=== PATIENT | female | born 1940 | race Caucasian/White ===

== ENCOUNTER → 2017-01-27 | Outpatient (CLI) | payer MEDICARE ==
[~2017-01-27] MED LIST: ACET325T51 PO; ALBU18HF2 INH; CETI10CA19 PO; CLOP75TA PO; FLUT9.9S NAS; GEMF600T3 PO; IPRA3AMP AEROSOL; METO50TA5 PO; PANT40TA27 PO; POTA20TA10 PO; PRAV40TA3 PO; TRAV5DRO BOTH EYES; TRIA15OI2 TOP
[2017-01-27 14:44] LABS: POTASSIUM 3.7 MEQ/L (3.6-5)
== END ==
LOC: LAB 14:22
PROVIDERS: ATTEND Family Medicine
DX: E87.6 Hypokalemia (principal)
CPT/HCPCS: 36415; 84132

== ENCOUNTER → 2017-01-28 | Outpatient (CLI) | payer MEDICARE ==
[2017-01-28 07:46] LABS: POTASSIUM 4.2 MEQ/L (3.6-5)
== END ==
LOC: LAB 07:18
PROVIDERS: ATTEND Family Medicine
DX: E87.6 Hypokalemia (principal)
CPT/HCPCS: 36415; 84132